=== PATIENT | male | born 1965 | race Caucasian/White ===

== ENCOUNTER 2017-01-09 15:00 | Emergency (ER) | payer OTHER, MEDICARE ==
[~2017-01-09] VITALS: Ht 177.8 cm; Wt 99.8 kg
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
[2017-01-09 16:52] LABS: ABSOLUTE BASOPHIL COUNT 0.1 /CUMM (0.0-0.2); ABSOLUTE EOSINOPHIL COUNT 0.1 /CUMM (0.0-0.7); ABSOLUTE GRANULOCYTE CT 3.9 /CUMM (1.4-6.5); ABSOLUTE LYMPH COUNT 2.6 /CUMM (1.2-3.4); ABSOLUTE MONOCYTE COUNT 0.6 /CUMM (0.10-0.60); BASOPHIL % 0.7 % (0.0-2.0); EOSINOPHIL % 1.8 % (0-5); GRANULOCYTE % 53.4 % (42.2-75.2); HEMATOCRIT 42.3 % (42-52); MEAN CORPUSCULAR HGB 29.4 PG (27.0-31.0); MEAN CORPUSCULAR HGB CONC 33.2 G/DL (33.0-37.0); MEAN CORPUSCULAR VOLUME 88.6 FL (80.0-94.0); MEAN PLATELET VOLUME 9.4 FL (7.4-10.4); PLATELET COUNT 186 /CUMM (130-400); RBC DISTRIBUTION WIDTH 13.1 % (11.5-14.5); RED BLOOD CELL CT 4.77 /CUMM (4.70-6.10); WHITE BLOOD CELL COUNT 7.3 /CUMM (4.8-10.8)
[2017-01-09] MEDS ORDERED: LORAZEPAM0.5 M1 PO (17:16)
[2017-01-09] MEDS ORDERED: ABILIFY30 M1 PO (17:17)
[2017-01-09] MEDS ORDERED: BUPROPION HCL200 M2 PO (17:17)
[2017-01-09] MEDS ORDERED: VENLAFAXINE HC150 MG PO (17:17)
[2017-01-09] MEDS ORDERED: LOPID600 MG PO (17:19)
[2017-01-09] MEDS ORDERED: MYRBETRIQ50 M1 PO (17:20)
[2017-01-09] MEDS ORDERED: MELOXICAM15 M1 PO (17:20)
[2017-01-09] MEDS ORDERED: DDAVP0.2 MG PO (17:21)
[2017-01-09 17:38] VITALS: BP 129/75
== END 2017-01-09 17:39 ==
LOC: ERH 15:00
PROVIDERS: Physician Assistant Medical
DX: R56.9 Unspecified convulsions (principal)
CPT/HCPCS: G0480